=== PATIENT | female | born 1965 | race Caucasian/White ===

== ENCOUNTER 2021-11-12 11:41 | Emergency (ER) | payer SELFPAY ==
[~2021-11-12] VITALS: Ht 154.9 cm; Wt 73.0 kg
[2021-11-12] MEDS ORDERED: ACETAMINOPHEN WITH CODEINE 300/30MG TABLET PO ONE (12:15)
[2021-11-12] MEDS ORDERED: ONDANSETRON 4MG ODT PO ONE (12:15)
[2021-11-12 12:21] VITALS: BP 184/73
[2021-11-12] MEDS ORDERED: CYCL10TA21 MT (14:30)
[2021-11-12] MEDS ORDERED: NAPR-1176 MT (14:30)
== END 2021-11-12 15:15 | disposition home or self-care (01) ==
LOC: EDSEX 11:41 → ER 11:51
DX: S80.01XA Contusion of right knee, initial encounter (principal); W10.8XXA Fall (on) (from) other stairs and steps, initial encounter; Y93.89 Activity, other specified; Y92.89 Other specified places as the place of occurrence of the external cause; Y99.0 Civilian activity done for income or pay
CPT/HCPCS: 73562; 73590; 99284; Q0162